=== PATIENT | male | born 1995 | race Caucasian/White ===

== ENCOUNTER 2023-04-24 05:02 | Emergency (ER) | payer OTHER, SELFPAY ==
[2023-04-24 05:21] VITALS: BP 109/80; PULSE 80; RESP 16; TEMP 36.6; O2SAT 98; BMI 15.8
--- NOTE | 2023-04-24 05:33 | ED_ITS ---
HPI - Abdominal Pain General Chief Complaint: Abdominal Pain Stated Complaint: ABD PAIN Time Seen by Provider: 04/24/23 05:24 History of Present Illness HPI narrative: history of Crohn's disease. followed by GI at [facility]. States Radha. Presents with epigastric pain that started around midnight. No nausea or vomiting. chronic diarrhea for which he takes Imodium. No fever MD elicited complaint: Reports abdominal pain Related Data Home Medications Medication Instructions Recorded Confirmed ustekinumab 90 mg/mL subcutaneous 90 mg subcut 04/24/23 syringe (Radha) Allergies Allergy/AdvReac Type Severity Reaction Status Date / Time No Known Drug Allergies Allergy Verified 04/24/23 05:24 Review of Systems ROS Status of ROS 10 or more systems reviewed and unremarkable except as noted in history and below Gastrointestinal Reports: abdominal pain PFSH PFSH Social History Smoking status: Current every day smoker Exam Constitutional Vital Signs, click to edit/add: Last Vital Signs Temp 97.8 F 04/24/23 05:21 Pulse 86 04/24/23 08:04 Resp 16 04/24/23 08:04 BP 136/86 04/24/23 08:04 Pulse Ox 100 04/24/23 08:04 O2 Del Method Room Air 04/24/23 08:04 Common normals: no apparent distress, average body habitus, oriented x3, no limitations and healthy appearing Eye Common normals: PERRL, EOMs intact bilaterally and conjunctivae normal Respiratory Common normals: normal respiratory effort, no retractions, no use of accessory muscles and clear to auscultation bilaterally Cardio Common normals: regular rate, regular rhythm, S1 normal heart sound and S2 normal heart sound GI Other: mild epigastric tenderness Extremity Common normals: normal to inspection and full ROM Neuro Common normals: oriented x3, CN's II-XII intact bilaterally, moves all extremities, no focal motor deficits and no sensory deficits noted Psych Appearance: grossly normal Course Vital Signs Vital signs: Vital Signs Temperature 97.8 F 04/24/23 05:21 Pulse Rate 80 04/24/23 05:21 Respiratory Rate 16 04/24/23 05:21 Blood Pressure 109/80 04/24/23 05:21 Pulse Oximetry 98 04/24/23 05:21 Temperature 97.8 F 04/24/23 05:21 Pulse Rate 86 04/24/23 08:04 Respiratory Rate 16 04/24/23 08:04 Blood Pressure 136/86 04/24/23 08:04 Pulse Oximetry 100 04/24/23 08:04 Oxygen Delivery Method Room Air 04/24/23 08:04 MDM - Abdominal Pain MDM Narrative Medical decision making narrative: past history of Crohn's. Past surgery of small intestine. presents with abdominal pain that started last PM. No vomiting or fever. CT with findings of ileitis. patient continues to complain of pain. Order placed for Solumedrol and Fentanyl. care transferred to oncoming physician at change of shift Lab Data Labs: Lab Results 04/24/23 04/24/23 Range/Units 05:30 07:30 WBC 11.8 H (4.0-11.0) 10^3/uL RBC 5.16 (4.70-6.10) 10^6/uL Hgb 14.3 (14.0-18.0) g/dL Hct 43.2 (42.0-54.0) % MCV 83.7 (80.0-94.0) fL MCH 27.7 (25.9-34.0) pg MCHC 33.1 (29.9-35.2) g/dL RDW 14.5 (11.0-15.0) % Plt Count 309 (150-450) 10^3/uL MPV 9.8 (9.5-13.5) fL Neut % (Auto) 70.5 (43.0-75.0) % Lymph % (Auto) 18.0 L (20.5-60.0) % [place] % (Auto) 9.4 (1.7-12.0) % Eos % (Auto) 1.0 (0.9-7.0) % Baso % (Auto) 0.9 (0.2-2.0) % Neut # (Auto) 8.3 H (1.4-6.5) 10^3/uL Lymph # (Auto) 2.1 (1.2-3.8) 10^3/uL [place] # (Auto) 1.1 H (0.3-0.8) 10^3/uL Eos # (Auto) 0.1 (0.0-0.7) 10^3/uL Baso # (Auto) 0.1 (0.0-0.1) 10^3/uL Abs Immat Gran (auto) 0.02 (0.00-0.03) 10^3/uL Imm/Tot Granulo (auto) 0.2 (0.0-0.5) % Sodium 138 (136-145) mmol/L Potassium 3.9 (3.5-5.1) mmol/L Chloride 103 (98-107) mmol/L Carbon Dioxide 23.8 (21.0-32.0) mmol/L Anion Gap 15.1 BUN 12.0 (7.0-18.0) mg/dL Creatinine 0.98 (0.70-1.30) mg/dL Est GFR ( Amer) >60 (>=60) Est GFR (Non-Af Amer) >60 (>=60) BUN/Creatinine Ratio 12.2 Glucose 97 (74-106) mg/dL Lactate 1.4 (0.4-2.0) mmol/L Calcium 9.4 (8.5-10.1) mg/dL Total Bilirubin 0.5 (0.2-1.0) mg/dL AST 18 (15-37) U/L ALT 21 (16-63) U/L Alkaline Phosphatase 113 (46-116) U/L Total Protein 7.8 (6.4-8.2) g/dL Albumin 4.1 (3.4-5.0) g/dL Globulin 3.7 g/dL Albumin/Globulin Ratio 1.1 Lipase 82.0 (73.0-393.0) U/L Urine Color Yellow (YELLOW) Urine Clarity Clear (CLEAR) Urine pH 5.0 (5.0-9.0) Ur Specific [place] <=1.005 A (1.005-1.025) Urine Protein Negative (NEG/TRACE) mg/dL Urine Glucose (UA) Negative (NEGATIVE) mg/dL Urine Ketones 15 A (NEGATIVE) mg/dL Urine Occult Blood Trace-i (NEGATIVE) Urine Nitrite Negative (NEGATIVE) Urine Bilirubin Negative (NEGATIVE) Urine Urobilinogen 0.2 (0.2-1.0) EU/dL Ur Leukocyte Esterase Negative (NEGATIVE) Urine RBC None seen (0-2) #/HPF Urine WBC None seen (NONE SEEN) #/HPF Ur Squamous Epith Cells Rare (NONE/RARE) #/LPF Urine Bacteria None seen (NONE SEEN) #/HPF Urine Mucus None seen (NONE SEEN) Ur Culture Indicated? No Discharge Plan Discharge Chief Complaint: Abdominal Pain Clinical Impression: Abdominal pain Patient Disposition: Home, Self-Care Time of Disposition Decision: 07:41 Condition: Good Mode of Transportation: Private Vehicle Prescriptions / Home Meds: No Action Stelara 90 mg/mL syringe 90 mg SUBCUT Rx Instructions: used once every 2 months Instructions: Crohn Disease (ED), Abdominal Pain (ED) Stand Alone Forms: Portal Instructions Referrals: Physician,Non-Staff, MD [Primary Care Provider] - 1 week Discharge Date/Time: 04/24/23 08:07
--- NOTE | 2023-04-24 05:37 | CT_ITS ---
The [address] [address] Patient Name: CHINA OCASIO MRN: [id number] date: 1995 Sex: M Assigned Patient Location: ER Current Patient Location: ED.MAIN Accession/Order Number: [id number] Exam Date: 04/24/2023 05:45 Report Date: 04/24/2023 07:29 At the request of: TEVIN STOREY Procedure: CT abdomen pelvis w con EXAM: CT abdomen pelvis w con HISTORY: Abdominal pain. COMPARISON: None. TECHNIQUE: Images of the abdomen and pelvis obtained with IV contrast. FINDINGS: Lung bases are clear. No adrenal mass or adenopathy. No obstructive uropathy. Portal vein is patent. No biliary or pancreatic ductal dilatation. Normal aorta. There are dilated loops of small bowel in the right lower quadrant which are fluid-filled, measuring up to 3.7 cm. There is an area of luminal narrowing of the distal ileum with circumferential wall thickening in the right lower quadrant seen best on axial image 73. The patient has undergone a prior ileocecectomy. The colon is decompressed. There is no pneumatosis or pneumoperitoneum. Prostate and bladder are age-appropriate. No inguinal hernia. No pelvic lymphadenopathy or ascites. Osseous structures are within normal limits. CT/CT abdomen pelvis w con IMPRESSION: The patient has undergone a previous ileocecectomy and does have a history of inflammatory bowel disease. There is evidence of a stricture involving the distal aspect of the ileum proximal to the ileocolic anastomosis. Proximal to this there is small bowel distention compatible with partial obstruction which may be chronic in nature. Appearance is compatible with active short segment ileitis. There is no evidence of visceral perforation or pathologic fluid collection. Correlation with previous cross-sectional imaging would be of benefit. Electronically authenticated by: SRIKANTH ANGELO Date: 04/24/2023 07:29
[2023-04-24 05:45] LABS: Basophils Absolute Auto 0.1 10^3/uL (0.0-0.1); Basophils Percent Auto 0.9 % (0.2-2.0); Eosinophils Absolute Auto 0.1 10^3/uL (0.0-0.7); Hematocrit 43.2 % (42.0-54.0); Hemoglobin 14.3 g/dL (14.0-18.0); Immature Granulocytes Abs Auto 0.02 10^3/uL (0.00-0.03); Immature Granulocytes Pct Auto 0.2 % (0.0-0.5); Lymphocytes Absolute Auto 2.1 10^3/uL (1.2-3.8); Mean Corpuscular HGB Conc 33.1 g/dL (29.9-35.2); Mean Corpuscular Hemoglobin 27.7 pg (25.9-34.0); Mean Corpuscular Volume 83.7 fL (80.0-94.0); Mean Platelet Volume 9.8 fL (9.5-13.5); Monocytes Absolute Auto 1.1 10^3/uL (0.3-0.8); Monocytes Percent Auto 9.4 % (1.7-12.0); Neutrophils Absolute Auto 8.3 10^3/uL (1.4-6.5); Neutrophils Percent Auto 70.5 % (43.0-75.0); Platelet Count 309 10^3/uL (150-450); Red Blood Count 5.16 10^6/uL (4.70-6.10); Red Cell Distribution Width 14.5 % (11.0-15.0); White Blood Count 11.8 10^3/uL (4.0-11.0)
[2023-04-24 06:02] LABS: Alanine Aminotransferase 21 U/L (16-63); Albumin Globulin Ratio 1.1; Albumin Level 4.1 g/dL (3.4-5.0); Alkaline Phosphatase 113 U/L (46-116); Anion Gap 15.1; Aspartate Amino Transferase 18 U/L (15-37); BUN Creatinine Ratio 12.2; Bilirubin Total 0.5 mg/dL (0.2-1.0); Calcium 9.4 mg/dL (8.5-10.1); Carbon Dioxide 23.8 mmol/L (21.0-32.0); Chloride 103 mmol/L (98-107); Estimated GFR (African America >60 (>=60); Estimated GFR (Non-African Ame >60 (>=60); Globulin 3.7 g/dL; Glucose 97 mg/dL (74-106); Potassium 3.9 mmol/L (3.5-5.1); Sodium 138 mmol/L (136-145); Total Protein 7.8 g/dL (6.4-8.2)
[2023-04-24] MEDS: FENTANYL CITRATE/PF 100 MCG/2 ML VIAL 50 MCG IV ×2 (06:02→07:09)
[2023-04-24] MEDS: 0.9 % SODIUM CHLORIDE 1,000 ML 999 ML IV (06:03)
[2023-04-24 06:04] LABS: Lactate/Lactic Acid 1.4 mmol/L (0.4-2.0)
[2023-04-24] MEDS: METHYLPREDNISOLONE SOD SUCC PF 125 MG/2 ML VIAL IVP (07:10)
[2023-04-24 07:36] LABS: Bilirubin Urine NEGATIVE (NEGATIVE); Blood Urine TRACE-I (NEGATIVE); Clarity Urine CLEAR (CLEAR); Color Urine YELLOW (YELLOW); Glucose Urine UA NEGATIVE (NEGATIVE); Ketones Urine 15 mg/dL (NEGATIVE); Leukocyte Esterase Urine NEGATIVE (NEGATIVE); Nitrite Urine NEGATIVE (NEGATIVE); Protein Urine NEGATIVE (NEG/TRACE); Specific Gravity Urine <=1.005 (1.005-1.025); Urobilinogen Urine 0.2 EU/dL (0.2-1.0)
--- NOTE | 2023-04-24 07:42 | ED.ABDPAIN1 ---
HPI - Abdominal Pain General Chief Complaint: Abdominal Pain Stated Complaint: ABD PAIN Time Seen by Provider: 04/24/23 05:24 History of Present Illness HPI narrative: the patient was initially seen by Dr. Starr and signed out to me after discussing the case with him thoroughly. Please see his for hhistory and physical. MD elicited complaint: Reports abdominal pain Related Data Home Medications Medication Instructions Recorded Confirmed ustekinumab 90 mg/mL subcutaneous 90 mg subcut 04/24/23 syringe (Stelara) Allergies Allergy/AdvReac Type Severity Reaction Status Date / Time No Known Drug Allergies Allergy Verified 04/24/23 05:24 [facility] Social History Smoking status: Current every day smoker Exam Constitutional Vital Signs, click to edit/add: Last Vital Signs Temp 97.8 F 04/24/23 05:21 Pulse 80 04/24/23 05:21 Resp 16 04/24/23 05:21 BP 109/80 04/24/23 05:21 Pulse Ox 98 04/24/23 05:21 Course Vital Signs Vital signs: Vital Signs Temperature 97.8 F 04/24/23 05:21 Pulse Rate 80 04/24/23 05:21 Respiratory Rate 16 04/24/23 05:21 Blood Pressure 109/80 04/24/23 05:21 Pulse Oximetry 98 04/24/23 05:21 Temperature 97.8 F 04/24/23 05:21 Pulse Rate 80 04/24/23 05:21 Respiratory Rate 16 04/24/23 05:21 Blood Pressure 109/80 04/24/23 05:21 Pulse Oximetry 98 04/24/23 05:21 MDM - Abdominal Pain MDM Narrative Medical decision making narrative: the patient's workup is essentially negative. CAT scan shows chronic-appearing structure and some ileitis. He feels much better now after treatment and wishes to be discharged home. Treatment diagnosis and follow-up were discussed with the patient. Differential Diagnosis Differential diagnosis: Likely abdominal pain, constipation, diverticulitis, gastroenteritis, pancreatitis and small bowel obstruction Lab Data Attestation: I reviewed the patient's lab results. Labs: Lab Results 04/24/23 Range/Units 05:30 WBC 11.8 H (4.0-11.0) 10^3/uL RBC 5.16 (4.70-6.10) 10^6/uL Hgb 14.3 (14.0-18.0) g/dL Hct 43.2 (42.0-54.0) % MCV 83.7 (80.0-94.0) fL MCH 27.7 (25.9-34.0) pg MCHC 33.1 (29.9-35.2) g/dL RDW 14.5 (11.0-15.0) % Plt Count 309 (150-450) 10^3/uL MPV 9.8 (9.5-13.5) fL Neut % (Auto) 70.5 (43.0-75.0) % Lymph % (Auto) 18.0 L (20.5-60.0) % [place] % (Auto) 9.4 (1.7-12.0) % Eos % (Auto) 1.0 (0.9-7.0) % Baso % (Auto) 0.9 (0.2-2.0) % Neut # (Auto) 8.3 H (1.4-6.5) 10^3/uL Lymph # (Auto) 2.1 (1.2-3.8) 10^3/uL [place] # (Auto) 1.1 H (0.3-0.8) 10^3/uL Eos # (Auto) 0.1 (0.0-0.7) 10^3/uL Baso # (Auto) 0.1 (0.0-0.1) 10^3/uL Abs Immat Gran (auto) 0.02 (0.00-0.03) 10^3/uL Imm/Tot Granulo (auto) 0.2 (0.0-0.5) % Sodium 138 (136-145) mmol/L Potassium 3.9 (3.5-5.1) mmol/L Chloride 103 (98-107) mmol/L Carbon Dioxide 23.8 (21.0-32.0) mmol/L Anion Gap 15.1 BUN 12.0 (7.0-18.0) mg/dL Creatinine 0.98 (0.70-1.30) mg/dL Est GFR ( Amer) >60 (>=60) Est GFR (Non-Af Amer) >60 (>=60) BUN/Creatinine Ratio 12.2 Glucose 97 (74-106) mg/dL Lactate 1.4 (0.4-2.0) mmol/L Calcium 9.4 (8.5-10.1) mg/dL Total Bilirubin 0.5 (0.2-1.0) mg/dL AST 18 (15-37) U/L ALT 21 (16-63) U/L Alkaline Phosphatase 113 (46-116) U/L Total Protein 7.8 (6.4-8.2) g/dL Albumin 4.1 (3.4-5.0) g/dL Globulin 3.7 g/dL Albumin/Globulin Ratio 1.1 Lipase 82.0 (73.0-393.0) U/L Imaging Data CT scan - abdomen: Radiologist's impression: Procedure: CT abdomen pelvis w con EXAM: CT abdomen pelvis w con HISTORY: Abdominal pain. COMPARISON: None. TECHNIQUE: Images of the abdomen and pelvis obtained with IV contrast. FINDINGS: Lung bases are clear. No adrenal mass or adenopathy. No obstructive uropathy. Portal vein is patent. No biliary or pancreatic ductal dilatation. Normal aorta. There are dilated loops of small bowel in the right lower quadrant which are fluid-filled, measuring up to 3.7 cm. There is an area of luminal narrowing of the distal ileum with circumferential wall thickening in the right lower quadrant seen best on axial image 73. The patient has undergone a prior ileocecectomy. The colon is decompressed. There is no pneumatosis or pneumoperitoneum. Prostate and bladder are age-appropriate. No inguinal hernia. No pelvic lymphadenopathy or ascites. Osseous structures are within normal limits. IMPRESSION: The patient has undergone a previous ileocecectomy and does have a history of inflammatory bowel disease. There is evidence of a stricture involving the distal aspect of the ileum proximal to the ileocolic anastomosis. Proximal to this there is small bowel distention compatible with partial obstruction which may be chronic in nature. Appearance is compatible with active short segment ileitis. There is no evidence of visceral perforation or pathologic fluid collection. Correlation with previous cross-sectional imaging would be of benefit. Electronically authenticated by: SRIKANTH ANGELO Date: 04/24/2023 07:29 Discharge Plan Discharge Chief Complaint: Abdominal Pain Clinical Impression: Abdominal pain Patient Disposition: Home, Self-Care Time of Disposition Decision: 07:41 Condition: Good Mode of Transportation: Private Vehicle Prescriptions / Home Meds: No Action Stelara 90 mg/mL syringe 90 mg SUBCUT Rx Instructions: used once every 2 months Instructions: Crohn Disease (ED), Abdominal Pain (ED) Stand Alone Forms: Portal Instructions Referrals: Physician,Non-Staff, MD [Primary Care Provider] - 1 week
[2023-04-24 07:49] LABS: Urine Microscopic Indicated YES
[2023-04-24 07:50] LABS: RBC Urine NONE SEEN #/HPF (0-2); WBC Urine NONE SEEN #/HPF (NONE SEEN)
[2023-04-24 07:51] LABS: Bacteria Urine NONE SEEN #/HPF (NONE SEEN); Mucus Urine NONE SEEN (NONE SEEN); Squamous Epithelial Cell Urine RARE #/LPF (NONE/RARE)
[2023-04-24 07:52] LABS: Urine Culture Indicated NO
[2023-04-24 08:04] VITALS: BP 136/86; PULSE 86; RESP 16; O2SAT 100
== END 2023-04-24 08:07 | disposition home or self-care (01) ==
PROVIDERS: Internal Medicine; Emergency Provider Emergency Medicine
DX: R10.9 Unspecified abdominal pain (principal); F17.210 Nicotine dependence, cigarettes, uncomplicated; K50.90 Crohn's disease, unspecified, without complications; Z79.899 Other long term (current) drug therapy
CPT/HCPCS: 36415; 74177; 80053; 81001; 83605; 83690; 85025; 96374; 96375; 96376; 99285; J2930; Q9967

== ENCOUNTER 2024-12-15 22:59 | Emergency (ER) | payer OTHER, SELFPAY ==
[2024-12-15] VITALS (8 sets, daily range): BP systolic 128; BP diastolic 87; PULSE 80–115; TEMP 36.8; O2SAT 94–99; BMI 18.2
--- NOTE | 2024-12-15 23:21 | ED_ITS ---
HPI - Arrhythmia/Palpitations General Chief Complaint: Arrhythmia/Palpitations Stated Complaint: RAPID HEART RATE Time Seen by Provider: 12/15/24 23:16 Source: patient Mode of arrival: walk-in History of Present Illness HPI narrative: states started on Adderall by his physician this past week. Prescribed one pill per day. States he read on line about other people taking it more often as it wears off. He has taken 20 pills over the past 3-4 days. [place] his heart racing and it worried him and this is why he came in . No thoughts of harming himself Related Data Home Medications ?Medication ?Instructions ?Recorded ?Confirmed ustekinumab 90 mg/mL subcutaneous 90 mg subcut 3 syringe (Stelara) cariprazine 3 mg capsule (Vraylar) mg 12/15/24 colestipol 1 gram tablet g PO 12/15/24 dexmethylphenidate 10 mg mg PO 12/15/24 capsule,extended release [id number] ferrous sulfate 325 mg (65 mg mg 12/15/24 iron) tablet loperamide 2 mg capsule mg 12/15/24 Allergies Allergy/AdvReac Type Severity Reaction Status Date / Time No Known Drug Allergies Allergy Verified 12/15/24 23:15 Review of Systems ROS Status of ROS 10 or more systems reviewed and unremark able except as noted in history and below PFSH PFS Social History Smoking status: Current every day smoker Little interest or pleasure in doing things: not at all Feeling down, depressed, or hopeless: not at all Exam Constitutional Vital Signs, click to edit/add: Last Vital Signs Temp 98.3 F 12/15/24 23:02 Pulse 76 12/16/24 01:30 Resp 29 H 12/16/24 01:30 BP 128/87 12/15/24 23:02 Pulse Ox 95 12/16/24 01:30 O2 Del Method Room Air 12/15/24 23:02 Common normals: no apparent distress, average body habitus, oriented x3, no limitations, healthy appearing, alert and well nourished [facility] Common normals: normocephalic and head/scalp atraumatic Eye Common normals: EOMs intact bilaterally and conjunctivae normal Respiratory Common normals: normal respiratory effort, no retractions, no use of accessory muscles and clear to auscultation bilaterally Cardio Common normals: S1 normal heart sound and S2 normal heart sound Rate: tachycardic GI Common normals: Normal to inspection, nondistended, normoactive bowel sounds present and soft to palpation Extremity Common normals: normal to inspection and full ROM Neuro Common normals: oriented x3 and CN's II-XII intact bilaterally Psych Appearance: grossly normal Course Vital Signs Vital signs: Vital Signs Temperature 98.3 F 12/15/24 23:02 Pulse Rate 112 H 12/15/24 23:02 Respiratory Rate 20 12/15/24 23:02 Blood Pressure 128/87 12/15/24 23:02 Pulse Oximetry 99 12/15/24 23:02 Oxygen Delivery Method Room Air 12/15/24 23:02 Temperature 98.3 F 12/15/24 23:02 Pulse Rate 76 12/16/24 01:30 Respiratory Rate 29 H 12/16/24 01:30 Blood Pressure 128/87 12/15/24 23:02 Pulse Oximetry 95 12/16/24 01:30 Oxygen Delivery Method Room Air 12/15/24 23:02 MDM - Arrhythmia/Palpitations MDM Narrative Medical decision making narrative: patient presents after overdosing on adderall. suppose to take on per day and he took 8-10 per day. Adderall is newly prescribed to him. States it was wearing off and he read on line that others were taking more . He denies any thought of harming himself . Came in because of his elevated heart rate. labs and diagnostic studies neg. His tachycardia resolved during the time he was in the department. Discharged home and advised to d/c Adderall until he is re evaluated by his doctor Lab Data Labs: Lab Results 12/15/24 Range/Units 23:32 WBC 14.1 H (4.0-11.0) 10^3/uL RBC 4.68 L (4.70-6.10) 10^6/uL Hgb 12.2 L (14.0-18.0) g/dL Hct 38.6 L (42.0-54.0) % MCV 82.5 (80.0-94.0) fL MCH 26.1 (25.9-34.0) pg MCHC 31.6 (29.9-35.2) g/dL RDW 23.6 H (11.0-15.0) % Plt Count 276 (150-450) 10^3/uL MPV 9.3 L (9.5-13.5) fL Neut % (Auto) 77.5 H (43.0-75.0) % Lymph % (Auto) 14.1 L (20.5-60.0) % [place] % (Auto) 7.0 (1.7-12.0) % Eos % (Auto) 0.6 L (0.9-7.0) % Baso % (Auto) 0.4 (0.2-2.0) % Neut # (Auto) 10.9 H (1.4-6.5) 10^3/uL Lymph # (Auto) 2.0 (1.2-3.8) 10^3/uL [place] # (Auto) 1.0 H (0.3-0.8) 10^3/uL Eos # (Auto) 0.1 (0.0-0.7) 10^3/uL Baso # (Auto) 0.1 (0.0-0.1) 10^3/uL Abs Immat Gran (auto) 0.06 H (0.00-0.03) 10^3/uL Imm/Tot Granulo (auto) 0.4 (0.0-0.5) % Sodium 138 (136-145) mmol/L Potassium 3.7 (3.5-5.1) mmol/L Chloride 103 (98-107) mmol/L Carbon Dioxide 28.4 (21.0-32.0) mmol/L Anion Gap 10.3 BUN 21.0 H (7.0-18.0) mg/dL Creatinine 1.07 (0.70-1.30) mg/dL Est GFR ( Amer) >60 (>=60 mL/min/1.73m^2) Est GFR (Non-Af Amer) >60 (>=60 mL/min/1.73m^2) BUN/Creatinine Ratio 19.6 Glucose 126 H (74-106) mg/dL Calcium 8.5 (8.5-10.1) mg/dL Troponin I High Sens <4.0 L (4.0-76.1) pg/mL Salicylates 6.6 (<=19.9) mg/dL Acetaminophen 4.5 L (10.0-30.0) ug/mL Ethanol Quant <3 mg/dL Discharge Plan Discharge Chief Complaint: Arrhythmia/Palpitations Clinical Impression: Acute drug overdose Patient Disposition: Home, Self-Care Prescriptions / Home Meds: No Action ustekinumab [Stelara] 90 mg/mL syringe 90 mg SUBCUT Rx Instructions: used once every 2 months loperamide 2 mg capsule ferrous sulfate 325 mg (65 mg iron) tablet colestipol 1 gram tablet PO dexmethylphenidate 10 mg capsule,ER biphasic 50-50 PO Vraylar 3 mg capsule Print Language: Hungarian Instructions: Adult Overdose (ED) Additional Instructions: discontinue use of Adderall until re evaluated by your doctor in the next couple of days Referrals: Physician,Non-Staff, MD [Primary Care Provider] - 1 week
--- NOTE | 2024-12-15 23:30 | ECG_ITS ---
The [facility] Test Date: 2024-12-15 Pat Name: CHINA OCASIO Department: Room: - Gender: Male [employer] Machine Operator: : 1995 Requested By: [id number] Order Number: [id number] Reading MD: SIM NICOLE Measurements Intervals [place] Rate: 108 P: 74 MT: 126 QRS: 71 QRSD: 88 T: 58 QT: 322 QTc: 386 Interpretive Statements 1120 Sinus tachycardia 9140 abnormal rhythm ECG No previous ECG available for comparison Electronically Signed On 12-16-2024 11:24:08 EDT by SIM NICOLE
[2024-12-15 23:38] LABS: Basophils Absolute Auto 0.1 10^3/uL (0.0-0.1); Basophils Percent Auto 0.4 % (0.2-2.0); Eosinophils Absolute Auto 0.1 10^3/uL (0.0-0.7); Eosinophils Percent Auto 0.6 % (0.9-7.0); Hematocrit 38.6 % (42.0-54.0); Hemoglobin 12.2 g/dL (14.0-18.0); Immature Granulocytes Abs Auto 0.06 10^3/uL (0.00-0.03); Immature Granulocytes Pct Auto 0.4 % (0.0-0.5); Lymphocytes Percent Auto 14.1 % (20.5-60.0); Mean Corpuscular HGB Conc 31.6 g/dL (29.9-35.2); Mean Corpuscular Hemoglobin 26.1 pg (25.9-34.0); Mean Corpuscular Volume 82.5 fL (80.0-94.0); Mean Platelet Volume 9.3 fL (9.5-13.5); Neutrophils Absolute Auto 10.9 10^3/uL (1.4-6.5); Neutrophils Percent Auto 77.5 % (43.0-75.0); Platelet Count 276 10^3/uL (150-450); Red Blood Count 4.68 10^6/uL (4.70-6.10); Red Cell Distribution Width 23.6 % (11.0-15.0); White Blood Count 14.1 10^3/uL (4.0-11.0)
--- NOTE | 2024-12-15 23:49 | PC.NURSE ---
Pt remains in a NSR with a rate in the 80's.
[2024-12-15 23:56] LABS: Anion Gap 10.3; BUN Creatinine Ratio 19.6; Calcium 8.5 mg/dL (8.5-10.1); Carbon Dioxide 28.4 mmol/L (21.0-32.0); Chloride 103 mmol/L (98-107); Estimated GFR (African America >60 (>=60 mL/min/1.73m^2); Estimated GFR (Non-African Ame >60 (>=60 mL/min/1.73m^2); Glucose 126 mg/dL (74-106); Potassium 3.7 mmol/L (3.5-5.1); Sodium 138 mmol/L (136-145); Troponin I High Sensitivity <4.0 pg/mL (4.0-76.1)
[2024-12-15 23:58] LABS: Acetaminophen 4.5 ug/mL (10.0-30.0); Salicylate 6.6 mg/dL (<=19.9)
[2024-12-16] VITALS (11 sets, daily range): BP systolic 118; BP diastolic 70; PULSE 71–92; O2SAT 91–100
[2024-12-16 00:07] LABS: Ethanol <3 mg/dL
== END 2024-12-16 02:01 | disposition home or self-care (01) ==
PROVIDERS: Emergency Provider Internal Medicine
DX: T43.621A Poisoning by amphetamines, accidental (unintentional), initial encounter (principal); I49.8 Other specified cardiac arrhythmias; F17.200 Nicotine dependence, unspecified, uncomplicated
CPT/HCPCS: 36415; 71045; 80048; 80179; 80320; 80329; 84484; 85025; 93005; 99285